=== PATIENT | male | born 1975 | race Two or more races ===

== ENCOUNTER 2019-01-26 15:06 | Emergency (ER) | payer SELFPAY ==
[~2019-01-26] VITALS: Ht 182.9 cm; Wt 102.3 kg
[2019-01-26 15:11] VITALS: Ht 182.9 cm; Wt 102.3 kg
[2019-01-26 16:23] LABS: APPEARANCE CLEAR (CLEAR); BILIRUBIN NEGATIVE (NEGATIVE); COLOR YELLOW (YELLOW); GLUCOSE NEGATIVE (NEGATIVE); KETONE NEGATIVE (NEGATIVE); NITRITE NEGATIVE (NEGATIVE); PROTEIN NEGATIVE (NEGATIVE); UROBILINOGEN NORMAL (NORMAL)
[2019-01-26 16:34] VITALS: BP 145/93
[2019-01-27 19:08] LABS: HEPATITIS C ANTIBODY >11.0 S/CO RAT (0.0-0.9)
[2019-02-02 18:06] LABS: CHLAMYDIA TRACHOMATIS, NAA Negative (Negative)
== END 2019-01-26 16:34 | disposition home or self-care (01) ==
LOC: D.ER 15:06
PROVIDERS: Family Medicine
DX: Z20.6 Contact with and (suspected) exposure to human immunodeficiency virus [HIV] (principal)